=== PATIENT | female | born 1965 | race African-American/Black ===

== ENCOUNTER 2023-04-14 09:54 | Emergency (ER) | payer SELFPAY ==
[2023-04-14 10:04] VITALS: BP 119/59; PULSE 94; RESP 18; TEMP 98.1; BMI 20.1
[2023-04-14] MEDS ORDERED: KETOROLAC TROMETHAMINE 10 MG TABLET PO ONE ×2 (12:14→12:19)
== END 2023-04-14 12:57 | disposition home or self-care (01) ==
LOC: JERFT 09:54
DX: S93.402A Sprain of unspecified ligament of left ankle, initial encounter (principal); M25.552 Pain in left hip; R07.9 Chest pain, unspecified; W19.XXXA Unspecified fall, initial encounter
CPT/HCPCS: 71046-TC-FY; 72170-TC-FY; 73502-TC-LT-FY; 73610-TC-LT-FY; 73630-TC-LT; 99284-25

== ENCOUNTER 2023-05-17 16:51 | Emergency (ER) | payer SELFPAY ==
[2023-05-17 17:24] VITALS: RESP 13; TEMP 98.5; BMI 31.3
[2023-05-17] MEDS ORDERED: ACETAMINOPHEN 325 MG TABLET (FP) PO ONE (18:15)
[2023-05-17] MEDS ORDERED: SODIUM CHLORIDE 1,000 ML IV ONE (18:16)
[2023-05-17] MEDS ORDERED: ACETAMINOPHEN 325 MG TABLET (FP) ONE (18:17)
[2023-05-17 18:48] LABS: BASO % 0.9 % (0-2.0); EOS % 1.1 % (0-4.5); HEMATOCRIT 37.9 % (32.4-45.2); HEMOGLOBIN 12.7 GM/dL (10.7-15.3); LYMPH % 32.2 % (8-40); MCH 29.7 pg (25.7-33.7); MCHC 33.5 g/dl (32.0-36.0); MEAN CELL VOLUME 88.5 fl (80-96); MEAN PLT VOLUME 9.9 fl (7.5-11.1); MONO % 8.6 % (3.8-10.2); NEUT % 57.2 % (42.8-82.8); PLATELET COUNT 215 10^3/uL (134-434); RBC 4.28 M/mm3 (3.60-5.2); RDW 12.5 % (11.6-15.6); WHITE BLOOD COUNT 4.4 K/mm3 (4.0-10.0)
[2023-05-17 19:08] VITALS: BP 129/82; PULSE 64
[2023-05-17 19:18] LABS: POTASSIUM 4.4 mmol/L (3.5-5.1)
[2023-05-17 19:20] LABS: ALBUMIN 3.8 g/dl (3.4-5.0); CALCIUM 9.3 mg/dL (8.5-10.1)
[2023-05-17 19:21] LABS: BLOOD UREA NITROGEN 12.1 mg/dL (7-18)
[2023-05-17 19:23] LABS: CREATININE 0.7 mg/dL (0.55-1.3)
[2023-05-17 19:25] LABS: BILIRUBIN,TOTAL 1.4 mg/dL (0.2-1); TOT PROT 7.7 g/dl (6.4-8.2)
== END 2023-05-17 20:09 | disposition home or self-care (01) ==
LOC: JER 16:51
PROC: 3E0337Z Introduction of Electrolytic and Water Balance Substance into Peripheral Vein, Percutaneous Approach (ICD-10-PCS; principal; 2023-05-17)
DX: R06.02 Shortness of breath (principal); R55 Syncope and collapse; R07.9 Chest pain, unspecified; R51.9 Headache, unspecified; Z20.822 Contact with and (suspected) exposure to COVID-19
CPT/HCPCS: 36415; 71046-TC-FY; 80053; 82962; 84484; 85025; 93005; 93010; 99285-25